=== PATIENT | female | born 1970 | race Caucasian/White ===

== ENCOUNTER 2017-03-23 06:43 | Day surgery (SDC) | payer BC ==
[~2017-03-23 06:43] MED LIST: Buffered Lidocaine 0.9% SYRIN* 5 ML/SYR SYRINGE INTRADERM ONE; Famotidine IV* 10 MG/ML 2 ML (20 mg) IV ONE; PROCHLORPERAZINE INJ 5 MG/ML 2 ML VIAL IV PRN; fentaNYL* 50 MCG/ML 2 ML VIAL (100 MCG VIAL) IV PRN; oxyCODONE/Acetamin 5/325 MG* TAB PO PRN
[2017-03-23] MEDS ORDERED: Buffered Lidocaine 0.9% SYRIN* 5 ML/SYR SYRINGE ONE (06:49)
[2017-03-23] MEDS ORDERED: ceFAZolin 2 GM PREMIX(*) 2 GM/50 ML BAG IVPB ONE (06:49)
[2017-03-23] MEDS ORDERED: Lidocaine 1% INJ* 10 MG/ML 30 ML SDV ONE (06:49)
[2017-03-23] MEDS ORDERED: Famotidine IV* 10 MG/ML 2 ML (20 mg) ONE (06:49)
[2017-03-23 07:15] LABS: Manual Entry Verification HAN0055; UR Preg Internal Control QC Line Present
[2017-03-23] MEDS ORDERED: KETAMINE HCL* 50 MG/ML 10 ML VIAL ONE (07:41)
[2017-03-23] MEDS ORDERED: Midazolam* 1 MG/ML 5 ML VIAL (5 MG) ONE (07:41)
[2017-03-23] MEDS ORDERED: fentaNYL* 50 MCG/ML 2 ML VIAL (100 MCG VIAL) ONE (07:41)
[2017-03-23] MEDS ORDERED: Metoprolol Tartrate IV* 1 MG/ML 5 ML VIAL ONE ×2 (08:58→12:45)
[2017-03-23] MEDS ORDERED: Diltiazem IV* 5 MG/ML 5 ML VIAL (for loading dose/IV Push) (25 MG) ONE (09:02)
[2017-03-23] MEDS ORDERED: Lidocaine 2% PF * 5 ML VIAL ONE (09:07)
[2017-03-23] MEDS ORDERED: Dexamethasone IV* 4 MG/ML 1 ML (4 MG) ONE (09:07)
[2017-03-23] MEDS ORDERED: Ondansetron INJ* 2 MG/ML VIAL ONE (09:07)
[2017-03-23] MEDS ORDERED: Propofol* 10 MG/ML 20 ML BTL IV PUSH ONE (09:07)
--- NOTE | 2017-03-23 10:06 | RAD ---
INDICATION: Status post PowerPort placement. COMPARISON: Comparison is made with a prior chest x-ray study from February 19, 2017. TECHNIQUE: A portable view of the chest was obtained. FINDINGS: There is a power port central venous catheter present entering on the left side. The catheter tip projects overlying the superior vena cava just proximal to the atrium. The heart is within normal limits in size. The lungs are clear. No pleural effusion or pneumothorax is seen. IMPRESSION: NO EVIDENCE FOR ACUTE DISEASE.
--- NOTE | 2017-03-23 10:19 | RAD ---
CPT II Codes: 6045F INDICATION: Breast cancer TECHNIQUE: Intraoperative fluoroscopy was provided during Mediport placement. FINDINGS: 3 spot films depict placement of a left internal jugular vein Mediport with the tip terminating at the cavoatrial junction.. Fluoroscopy time: 8.6 seconds IMPRESSION: As above.
--- NOTE | 2017-03-23 10:48 | PN ---
Progress Note - Progress Note Note: Brief Operative Note: Pre-op Dx: need for intravenous access for chemotherapy Postop Dx: same; also, new onset atrial fibrillation Procedure: placement of Left sided Powerport Anesthesia: local/MAC ([place]) Surgeon: Jacky Asst:none EBL: Fluids: Findings: dictated (ectopy noted during placement; postop ECG confirms a-fib; Cardiology cx requested; I spoke w/ Dr. Maldonado who will see patient in PACU.)
--- NOTE | 2017-03-23 12:54 | CONS ---
CC: Dr. Rico; Cathryn Ashley MD CARDIOLOGY CONSULTATION: DATE OF CONSULT: 03/23/17 INDICATION FOR CONSULTATION: Atrial fibrillation. HISTORY OF PRESENT ILLNESS: The patient is a 47-year-old female with a recent diagnosis of stage I breast cancer, who came to the hospital today for the implantation of an Gwkmpn-D-Fngl. At the begi nning of the procedure, patient was in normal sinus rhythm and during the procedure, patient went in to atrial fibrillation. In the recovery room, patient was still in atrial fibrillation and in speak ing with the patient, she denies any recent cardiac symptoms. She denies any episodes of palpitatio ns. She denies any shortness of breath. She denies any chest pain. In speaking with her today, nicholas maurer has no symptoms from the atrial fibrillation other than feeling that her heart is a little funny. She denies any symptom of shortness of breath or chest pain. PAST MEDICAL HISTORY: Significant for recent diagnosis of stage I breast cancer, also the history o f factor V deficiency, history of pulmonary embolism 10 years ago. PAST SURGICAL HISTORY: 1. Appendectomy in 1979. 2. ACL repair in 2000. 3. Knee arthroscopy in 1986. OUTPATIENT MEDICATIONS: 1. Macrodantin 100 mg as needed. 2. Vitamin D. ALLERGIES: KEFLEX. FAMILY HISTORY: Negative for early coronary artery disease or cardiac arrhythmias. SOCIAL HISTORY: She is . 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 She is a non-smoker. Rare alcohol intake. She does exercise 3 to 5 times a week. PHYSICAL EXAMINATION: Temperature 97.2, heart rate varies between 90 and 105 beats per minute, bloo d pressure 119/74, respiratory rate is 16, oxygen saturation 98% on room air. Sclerae anicteric. O ropharynx is pink without erythema. Carotids are 2+ without bruits. JVD is normal. Thyroid is nor mal. Cardiac Exam: S1 and S2 without any murmurs, rubs or gallops. She does have an irregular rhy thm. Lungs are clear to auscultation bilaterally. There is no dullness to percussion. Abdomen is s oft, nontender, nondistended with normoactive bowel sounds. Extremities: Showed no edema. She has 2+ pulses throughout. The patient is awake, alert, and oriented. She moves all 4 extremities equal ly. DIAGNOSTIC STUDIES/LAB DATA: EKG demonstrates atrial fibrillation, otherwise unremarkable. Chest x-ray shows that the tip of the new infusion catheter may be right at the junction of the SVC and right atrium. IMPRESSION: This is a 47-year-old female with little past medical history who was brought to the [facility] today for placement of an Ruuvta-J-Kjen for chemotherapy. During the procedure, patient went into atrial fibrillation. Patient does not have any significant symptoms associated with it. The p zeenat is scheduled for an echocardiogram at my office tomorrow at 9 o'clock in the morning. For now, my recommendation is to give the patient 1 dose of Xarelto 20 mg and have her discharged fr om the adult day care worker area. Patient will see me tomorrow morning at 9 o'clock. If she is in ilan l sinus rhythm, we will proceed from there. If she is still in atrial fibrillation, I will schedule the patient for a cardioversion. [id number]/[facility] #: [id number]
[2017-03-23] MEDS ORDERED: Metoprolol Tartrate TAB* 25 MG ONE (13:18)
[2017-03-23 14:47] VITALS: BP 104/88
--- NOTE | 2017-03-24 05:14 | OP ---
CC: Cathryn Ashley MD; Joan Ybarra MD * DATE OF OPERATION: 03/23/17 - [facility] DATE OF : 68 SURGEON: Chalino Rico MD INTERNAL GRINDING MACHINE OPERATOR: None. ANESTHESIOLOGIST: Dr. Evans. ANESTHESIA: Local MAC. PRE-OP DIAGNOSIS: Breast cancer. POST-OP DIAGNOSIS: Breast cancer. OPERATIVE PROCEDURE: PowerPort placement, left internal jugular approach. ESTIMATED BLOOD LOSS: 10 mL. IV FLUIDS: Crystalloid. SPECIMEN: None. DRAINS: None. COMPLICATIONS: None. COUNTS: The instrument, needle, and sponge counts were correct. DESCRIPTION OF PROCEDURE: The patient was brought to the operating room and placed on the table supine. Sequential compression devices were placed on both lower extremities. The patient was administered intravenous sedation and time- out was performed after she was prepped and draped in the usual sterile fashion and after she received appropriate antibiotics. Local anesthetic was infiltrated for a left subclavian approach and several attempts were made to access the subclavian vein on the left but the vein was not cannulated. Next, the approach was made to the left internal jugular vein. This was approached with the use of ultrasound guidance and the vein was cannulated without difficulty. Subsequently, the guidewire was passed into the superior vena cava and confirmed under fluoroscopy. Anesthetic was then infiltrated locally in the left upper chest to create the subcutaneous pocket. Incision was created with a scalpel. Subcutaneous tissues were divided with cautery and hemostasis obtained. Counterincision was made at guidewire insertion site and an 8-[place] PowerPort catheter was back tunneled into the pocket and then peel-away sheath and dilator were inserted over the guidewire under fluoroscopic guidance. The guide -wire and dilator were removed and the catheter was advanced into the atrium. There was ectopy noted. The catheter was pulled back into the superior vena cava and ectopy resolved. The catheter was cut to appropriate length. A port was attached to the catheter and then the port was sutured into the pocket with 2-0 Surgipro at two sites. The catheter was drawn and then flushed easily. The wounds were closed in 2 layers with 3-0 Polysorb for the subcutaneous tissue , 4-0 Monocryl for the skin in subcuticular fashion. Steri-Strips, 2x2 gauze, and Tegaderm dressings were applied. The patient tolerated the procedure well. She was awakened and transferred to Recovery in stable condition. [id number]/[facility] #: [id number] FARIB[place]
== END 2017-03-23 14:44 | disposition home or self-care (01) ==
LOC: OR 06:43
PROVIDERS: ATTEND Surgery
DX: C50.411 Malignant neoplasm of upper-outer quadrant of right female breast (principal); I97.791 Other intraoperative cardiac functional disturbances during other surgery; Y83.8 Other surgical procedures as the cause of abnormal reaction of the patient, or of later complication, without mention of misadventure at the time of the procedure; I48.91 Unspecified atrial fibrillation; D68.51 Activated protein C resistance
CPT/HCPCS: 71010; 76000; 81025; 93005; A9270-GY; C1788; J0690; J1100; J1642; J2001; J2250; J2405; J2704; J3010

== ENCOUNTER → 2017-04-15 08:42 | Emergency (ER) | payer BC ==
[~2017-04-15 08:42] MED LIST changes: +Aspirin Low Dose CHEW TAB* 81 MG PO ONE; -Buffered Lidocaine 0.9% SYRIN* 5 ML/SYR SYRINGE INTRADERM ONE; -Famotidine IV* 10 MG/ML 2 ML (20 mg) IV ONE; +Iohexol 350* (CONTRAST) 500 ML MDV IV ONE; +NS 0.9% 1000 ML* 1,000 ML IV ONE; -PROCHLORPERAZINE INJ 5 MG/ML 2 ML VIAL IV PRN; +Pantoprazole IV* 40 MG IV ONE; +Pantoprazole IV* 80 MG in NS 0.9% 250 ML* 250 ML IVPB SCH; +Phytonadione INJ (Adult)* 10 MG/ML 1 ML AMP IV ONE; -fentaNYL* 50 MCG/ML 2 ML VIAL (100 MCG VIAL) IV PRN; -oxyCODONE/Acetamin 5/325 MG* TAB PO PRN
[2017-04-15 10:04] LABS: Hematocrit 37 % (35-47); Hemoglobin 12.1 g/dl (12.0-16.0); Mean Corpuscular HGB Conc 33 g/dl (31-36); Mean Corpuscular Hemoglobin 31 pg (27-31); Mean Corpuscular Volume 92 fL (80-97); Mean Platelet Volume 8 um3 (7.4-10.4); Red Blood Count 3.97 10^6/ul (4.0-5.4); Red Cell Distribution Width 13 % (10.5-15); White Blood Count 14.6 10^3/ul (3.5-10.8)
[2017-04-15 10:17] LABS: Albumin 3.3 g/dL (3.2-5.2); BUN/Creatinine Ratio 19.3 (8-20); Calcium 8.5 mg/dL (8.6-10.3); EGFR African American 94.4 (>60); EGFR Non-African American 73.4 (>60); Globulin 2.5 g/dL (2-4); Potassium 3.8 mmol/L (3.5-5.0); Total Bilirubin 0.3 mg/dL (0.2-1.0); Total Protein 5.8 g/dL (6.4-8.9)
[2017-04-15 10:18] LABS: Troponin I 0.02 ng/mL (<0.04)
--- NOTE | 2017-04-15 11:25 | RAD ---
HISTORY: Shortness of breath, pleuritic chest pain COMPARISONS: None TECHNIQUE: Multiple contiguous axial CT scans of the chest were obtained after the administration of nonionic intravenous contrast, timed to the pulmonary arterial phase of contrast enhancement.. Coronal and sagittal multiplanar reformations are also submitted for review. FINDINGS: Evaluation is limited by suboptimal contrast opacification. Attenuation of the main pulmonary artery is 205 Hounsfield units. This is of borderline quality for the detection of pulmonary embolism. NECK AND THYROID: The lower neck and thyroid are unremarkable. CHEST WALL: There is no lower cervical, axillary, or supraclavicular lymphadenopathy by size criteria. A left-sided chest port is noted. HEART AND PERICARDIUM: The heart is unremarkable. AORTA AND PULMONARY VASCULATURE: Evaluation is limited by suboptimal contrast opacification. There is no pulmonary arterial filling defect to suggest pulmonary embolism. There is no linear filling defect within the aorta to suggest aortic dissection. MEDIASTINUM: There is no mediastinal lymphadenopathy by size criteria. LILIA: There is no hilar lymphadenopathy by size criteria. AIRWAY AND ESOPHAGUS: The airway is unremarkable, without endobronchial filling defect. The esophagus is grossly normal. LUNG PARENCHYMA: The lungs are clear. PLEURA: No pleural abnormalities are noted. UPPER ABDOMEN: The upper abdomen is unremarkable. BONES AND SOFT TISSUES: No bone or soft tissue abnormalities are noted. OTHER: None. IMPRESSION: LIMITED STUDY. WITHIN THE LIMITATIONS OF THE STUDY, THERE IS NO PULMONARY ARTERIAL FILLING DEFECT TO SUGGEST PULMONARY EMBOLISM
--- NOTE | 2017-04-15 13:24 | RAD ---
HISTORY: Chest pain, tachycardia COMPARISONS: CTA dated April 15, 2017 TECHNIQUE: Multiple contiguous axial CT scans of the chest were obtained after the administration of nonionic intravenous contrast, timed to the pulmonary arterial phase of contrast enhancement.. Coronal and sagittal multiplanar reformations are also submitted for review. FINDINGS: NECK AND THYROID: The lower neck and thyroid are unremarkable. CHEST WALL: There is no lower cervical, axillary, or supraclavicular lymphadenopathy by size criteria. A left-sided chest port is noted HEART AND PERICARDIUM: The heart is unremarkable. AORTA AND PULMONARY VASCULATURE: There is no pulmonary arterial filling defect to suggest pulmonary embolism. There is no linear filling defect within the aorta to suggest aortic dissection. MEDIASTINUM: There is no mediastinal lymphadenopathy by size criteria. LILIA: There is no hilar lymphadenopathy by size criteria. AIRWAY AND ESOPHAGUS: The airway is unremarkable, without endobronchial filling defect. The esophagus is grossly normal. LUNG PARENCHYMA: The lungs are clear. PLEURA: No pleural abnormalities are noted. UPPER ABDOMEN: The upper abdomen is unremarkable. BONES AND SOFT TISSUES: No bone or soft tissue abnormalities are noted. OTHER: None. IMPRESSION: NO PULMONARY ARTERIAL FILLING DEFECT TO SUGGEST PULMONARY EMBOLISM
[2017-04-15 18:26] VITALS: BP 94/72
--- NOTE | 2017-04-18 22:52 | ED ---
Sushant Monge Salem, scribed for Colt Bang MD on 04/15/17 at 0906 . HPI Chest Pain - HPI Summary HPI Summary: Patient is a 47 y/o F who presents to the ED with CP since yesterday night. Pt reports right-sided back pain last night, coughing throughout the night, and SOB this morning. She also reports a DVT. Pt is Dr. Díaz patient and was diagnosed with breast cancer, stage 1, in January 2017. PMHx of DVT. She received her first round of chemotherapy 2 weeks ago and started her second round yesterday. She states that she had a port put in 3 weeks ago, but went into A Fib. She was started on Xeralto at that point, but she reports missing a few doses before DVT onset one week ago. Her Xeralto Rx was increased to 15mg twice a day since. - History of Current Complaint Chief Complaint: EDChestWallPain Time Seen by Provider: 04/15/17 08:59 Hx Obtained From: Patient Onset/Duration: Started Days Ago, Atraumatic, Still Present Timing: Constant Initial Severity: Moderate Current Severity: Moderate Pain Intensity: 5 Pain Scale Used: 0-10 Numeric Chest Pain Location: Diffuse Chest Pain Radiates: No Aggravating Factor(s): Nothing Alleviating Factor(s): Nothing Associated Signs and Symptoms: Positive: Chest Pain, Shortness of Breath, Cough - Allergy/Home Medications Allergies/Adverse Reactions: Allergies Allergy/AdvReac Type Severity Reaction Status Date / Time keflex AdvReac Severe Diarrhea Uncoded 03/23/17 06:57 PMH/Surg Hx/FS Hx/Imm Hx Endocrine/Hematology History: Denies: Hx Diabetes Cardiovascular History: Denies: Hx Hypertension, Hx Pacemaker/ICD History: Denies: Hx Renal Disease Sensory History: Reports: Hx Contacts or Glasses - glasses Denies: Hx Hearing Aid Opthamlomology History: Reports: Hx Contacts or Glasses - glasses Psychiatric History: Denies: Hx Panic Disorder - Cancer History Cancer Type, Location and Year: RIGHT BREAST-NO TREATMENT AT THIS TIME Hx Chemotherapy: No Hx Radiation Therapy: No - Surgical History Surgery Procedure, Year, and Place: Lt BREAST BIOPSY - 2005 - [facility]- BENIGN. LT KNEE - ACL RECON. APPENDECTOMY. rt. breast lumpectomy and sentinode biopsy on Hx Anesthesia Reactions: No Infectious Disease History: Denies: Traveled Outside the [place] in Last 30 Days - Family History Known Family History: Positive: Hypertension Negative: Cardiac Disease - Social History Alcohol Use: Occasionally Alcohol Amount: 1 month Hx Substance Use: No Substance Use Type: Reports: None Hx Tobacco Use: No Smoking Status (MU): Never Smoked Tobacco Have You Smoked in the Last Year: No Review of Systems Negative: Fever, Chills Negative: Erythema Negative: Sore Throat Positive: Chest Pain, Other - DVT. Positive: Shortness Of Breath, Cough Negative: Abdominal Pain, Vomiting, Nausea Negative: dysuria, hematuria Positive: Other - Right-sided back pain. . Negative: Myalgia, Edema Negative: Rash Neurological: Other - No dizziness. All Other Systems Reviewed And Are Negative: Yes Physical Exam - Summary Physical Exam Summary: Constitutional: Well-developed, Well-nourished, Alert. (-) Distressed Skin: Warm, Dry HENT: Normocephalic; Atraumatic Eyes: Conjunctiva normal Neck: Musculoskeletal ROM normal neck. (-) JVD, (-) Stridor, (-) Tracheal deviation Cardio: Rhythm regular, rate normal, Heart sounds normal; Intact distal pulses; The pedal pulses are 2+ and symmetric. Radial pulses are 2+ and symmetric. (-) Murmur Pulmonary/Chest wall: Effort normal. (-) Respiratory distress, (-) Wheezes, (-) Rales Abd: Soft, (-) Tenderness, (-) Distension, (-) Guarding, (-) Rebound Musculoskeletal: (-) Edema Lymph: (-) Cervical adenopathy Neuro: Alert, Oriented x3 Psych: Mood and affect Normal Triage Information Reviewed: Yes Vital Signs On Initial Exam: Initial Vitals Temp Pulse Resp BP Pulse Ox 97 F 120 22 123/62 99 04/15/17 08:45 04/15/17 08:45 04/15/17 08:45 04/15/17 08:45 04/15/17 08:45 Vital Signs Reviewed: Yes Diagnostics - Vital Signs Vital Signs Temp Pulse Resp BP Pulse Ox 04/15/17 08:45 97 F 120 22 123/62 99 - Laboratory Result Diagrams: 04/15/17 09:45 04/15/17 09:45 Diagnostic Studies Comment: Lactic acid: 3.1. Trop: 0.02, 0.04, then 0.01 Lab Statement: Any lab studies that have been ordered have been reviewed, and results considered in the medical decision making process. - CT CHEST CT Interpretation Completed By: Radiologist - IMPRESSION: LIMITED STUDY. WITHIN THE LIMITATIONS OF THE STUDY, THERE IS NO PULMONARY ARTERIAL FILLING DEFECT TO SUGGEST PULMONARY EMBOLISM CHEST 2 CT Interpretation Completed By: Radiologist - IMPRESSION: NO PULMONARY ARTERIAL FILLING DEFECT TO SUGGEST PULMONARY EMBOLISM - EKG 0854 EKG Interpretation: Sinus tacycardia @ 108 bpm. No STEMI. 1424 EKG Interpretation: NSR @ 84 bpm. No STEMI. No ectopy. Re-Evaluation - Re-Evaluation First Eval Re-Evaluation Time: 11:02 Comment: Updated pt on poor timing of CT contrast. Possibly requiring additional imaging. Second Eval Re-Evaluation Time: 11:56 Comment: Updated pt. Discussed consult. Third Eval Re-Evaluation Time: 14:22 Comment: Pt still has right-sided mid back pain. Will repeat EKG. Fourth Eval Re-Evaluation Time: 17:26 Comment: Discussed plan. They are all comfortable with plan. Chest Pain Course/Dx - Course Course Of Treatment: 47 y/o F presents with CP since yesterday night. Pt reports right-sided back pain last night, coughing throughout the night, and SOB this morning. She also reports a DVT. Pt is also a [place] pt receiving chemotherapy. Pt received ASA in ED course. CTA chest shows, per radiology, IMPRESSION: LIMITED STUDY. WITHIN THE LIMITATIONS OF THE STUDY, THERE IS NO PULMONARY ARTERIAL FILLING. DEFECT TO SUGGEST PULMONARY EMBOLISM. Repeat CT shows: IMPRESSION: NO PULMONARY ARTERIAL FILLING DEFECT TO SUGGEST PULMONARY EMBOLISM. EKG shows Sinus tacycardia @ 108 bpm. No STEMI. Repeat EKG shows NSR @ 84 bpm. No STEMI. No ectopy. Discussed case with Dr. Chandra (builder beam) @ 8689. Cardiology Dr. Chandra He states that since she is receiving chemotherapy, he would not do a stress test anyways. Trop is trending downwards. Ruled out PR and PE. Pt will be DC'd to follow up with Dr. Ybarra. - Diagnoses Provider Diagnoses: Chest pain, Tachycardia - Provider Notifications Discussed Care Of Patient With: Joan Ybarra Time Discussed With Above Provider: 11:49 Instructed by Provider To: Other - Discussed case. She recommended repeat CT scan. Repeat consult @ 1531 concerning cardiac work up. She would like to defer to cardiology. Discharge - Discharge Plan Condition: Stable Disposition: HOME Patient Education Materials: Chest Pain (ED), Tachycardia (ED) Referrals: Joan Ybarra MD [Medical Doctor] - Lee Maldonado MD [Medical Doctor] - Additional Instructions: Please follow up with Dr. Ybarra and Dr. Maldonado in 2 days. RETURN TO THE EMERGENCY DEPARTMENT FOR CHANGING OR WORSENING SYMPTOMS. The documentation as recorded by the Sushant monsalve Salem accurately reflects the service I personally performed and the decisions made by , Colt Bang MD.
== END | disposition home or self-care (01) ==
LOC: ED 08:42
DX: R00.0 Tachycardia, unspecified (principal); R07.9 Chest pain, unspecified; R06.02 Shortness of breath; R05 Cough
CPT/HCPCS: 36415; 71275; 80053; 83605; 84484; 85025; 93005; 96374; 99284; J1642; Q9967